=== PATIENT | female | born 1970 | race Caucasian/White ===

== ENCOUNTER 2018-05-17 10:05 | Emergency (ER) | payer BC, OTHER ==
[~2018-05-17] VITALS: Ht 165.1 cm; Wt 87.0 kg
[~2018-05-17 10:05] MED LIST: GLC/500 PO
[2018-05-17 10:07] VITALS: TEMP 36.5; Ht 165.1 cm; Wt 87.0 kg
[2018-05-17] MEDS ORDERED: ACET-1311 PO (10:15)
[2018-05-17] MEDS ORDERED: KETOROLAC TROMETHAMINE 60 MG/2 ML VIAL IM STA (11:01)
[2018-05-17] MEDS ORDERED: DIAZEPAM INJ 5 MG/ML 2 ML CARP IM STA (11:01)
[2018-05-17] MEDS ORDERED: MoRPHine SULFATE 10 MG/ML CARP/VIAL IM STA (11:01)
[2018-05-17] MEDS ORDERED: DIAZEPAM 5 MG/ML INJ 10ML VIAL ONE (11:08)
[2018-05-17] MEDS ORDERED: ONDANSETRON 4MG OD TAB PO ONE (11:15)
--- NOTE | 2018-05-17 12:54 | DIAGNOSTIC IMAGING REPORT ---
THORACIC SPINE 3 VIEWS HISTORY: LEFT MID BACK PAIN X ONE WEEK COMPARISON: None. FINDINGS: There is no fracture. No subluxation. Mild degenerative disc disease within the mid thoracic spine. Paraspinal soft tissues are unremarkable. IMPRESSION: No fracture or subluxation within the thoracic spine. Electronically signed by: Nick Prado M.D. 05/17/2018 12:52 PM Dictated Date/Time: 05/17/2018 12:51 PM
[2018-05-17] MEDS ORDERED: HYDR-5688 PO (13:10)
[2018-05-17] MEDS ORDERED: CYCL10TA6 PO (13:10)
--- NOTE | 2018-05-17 13:12 | EMERGENCY ROOM VISIT NOTE ---
ED Visit Note First contact with patient: 10:34 CHIEF COMPLAINT: Left mid back pain 1 week HISTORY OF PRESENT ILLNESS: Patient is a 47-year-old female who presents emergency department for evaluation of left mid back pain, near her left shoulder blade. Her symptoms number present for about a week after she did a fairly vigorous circuit workout at the gym. She relates that the following morning she woke up with a "knot" feeling in her left mid back. Her symptoms progressively worsened, prompting her to go to the chiropractor last Thursday. She states that he adjusted her neck and her shoulder, she did not get any significant relief. She describes a constant, aching pain between her left shoulder blade and spine. She has tried resting the area, [place] massage, Tylenol and Lorazepam, all without relief. She reports a constant pain. It is slightly worsened with movement and deep breathing. 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 She denies any cervical spine pain. No anterior chest pain or shortness of breath. She rates her pain a 9/10 presently. REVIEW OF SYSTEMS: Review of systems as per HPI. All other systems reviewed were negative. 10 systems reviewed. P ain, no chest pain, no head trauma. PMH: Electronic medical records are reviewed and summarized as above/below. See Problem List. SOCIAL HISTORY: Patient lives at home with family. Employed. Non-smoker.. PHYSICAL EXAM: Vital Signs: Reviewed Nurse's notes. MENTAL STATUS: Patient is an uncomfortable appearing 47-year-old female who is awake and alert and sitting upright on the edge of the gurney in moderate distress due to her mid back pain. HEART: Regular rate and rhythm. LUNGS: Clear to auscultation. SPINE: The patient does not have any tenderness to palpation over the cervical spinous processes. No cervical paraspinous muscle tenderness or spasm. She has full cervical spine range of motion, limited only by her mid back discomfort. There is no tenderness to palpation over the thoracic spinous processes. She has reproducible tenderness and focal spasm in the left mid thoracic region, between the thoracic spine and the scapula. NEUROLOGICAL: Alert, oriented, coherent. PERRL, moves all extremities well, sensation to touch intact over the upper extremities. Upper extremity DTRs are equal and symmetrical bilaterally. Strength to resisted shoulder flexion/ abduction, elbow flexion/extension, wrist flexion/extension, intrinsic hand strength, photo engraver strength, and thumb opposition is 5/5 bilaterally. EMERGENCY DEPARTMENT COURSE: The patient was treated with IM Toradol, Valium and morphine with oral Zofran. Thoracic spine x-rays were obtained, and negative for acute pathology. The patient has reproducible left paraspinous/ rhomboid spasm after exercising 1 week ago. I do not suspect acute cord compression, disc herniation, hematoma or epidural abscess. She is neurologically and neurovascularly intact in the upper extremities. She felt significantly improved with the IM medications in the emergency department. On reassessment she rated her pain a 5/10. She will be placed on a course of ibuprofen and Flexeril. She was given a small prescription for hydrocodone for pain. She was discharged home with a significant other driving. Medication reconciliation: I attest that I have personally reviewed the patient' s current medication list. Blood pressure screening : Patient was found to have normal blood pressure on screening and does not require follow-up. Patient was reviewed in the [facility] Prescription Drug Monitoring Program, and there were no red flags noted. THORACIC SPINE 3 VIEWS HISTORY: LEFT MID BACK PAIN X ONE WEEK COMPARISON: None. FINDINGS: There is no fracture. No subluxation. Mild degenerative disc disease within the mid thoracic spine. Paraspinal soft tissues are unremarkable. IMPRESSION: No fracture or subluxation within the thoracic spine. Problem List Medical Problems: (1) Calculus Of Kidney Status: Resolved (2) Low back pain with right-sided sciatica Status: Resolved Current/Historical Medications Scheduled Acetaminophen (Tylenol), 325 MG PO UD Scheduled PRN Cyclobenzaprine Hcl (Flexeril), 10 MG PO TID PRN for Muscle Spasms Hydrocodone/Acetaminophen 5MG/325MG ([place] 5MG/325MG), 1-2 TABLETS PO Q4 PRN for Pain Allergies Coded Allergies: Codeine (Verified Allergy, Unknown, RASH, 05/17/18) Diphenhydramine (Unverified Allergy, Unknown, rash, 05/17/18) Vital Signs Date Time Temp Pulse Resp B/P (MAP) Pulse Ox O2 Delivery O2 Flow Rate FiO2 05/17/18 13:31 59 17 113/76 99 05/17/18 11:46 74 106/70 98 Room Air 05/17/18 10:07 36.5 76 20 139/99 99 Room Air Medications Administered Medications (Trade) Dose Ordered Sig/Jim Route Start Time Stop Time Status Last Admin Dose Admin Ketorolac Tromethamine (Toradol Inj) 60 mg NOW STAT IM 05/17/18 11:01 05/17/18 11:03 DC 05/17/18 11:16 60 MG Morphine Sulfate (MoRPHine SULFATE INJ) 6 mg NOW STAT IM 05/17/18 11:01 05/17/18 11:03 DC 05/17/18 11:15 6 MG Ondansetron HCl (Zofran Odt) 4 mg ONE ONCE PO 05/17/18 11:15 05/17/18 11:16 DC 05/17/18 11:15 4 MG Diazepam (Valium Inj) 5 mg STK-MED ONCE .ROUTE 05/17/18 11:08 05/17/18 11:09 DC 05/17/18 11:16 5 MG Departure Information Impression Primary Impression: Thoracic back pain Prescriptions Hydrocodone/Acetaminophen 5MG/325MG (Helena 5MG/325MG) Tab 1-2 TABLETS PO Q4 Y for Pain, #20 TAB For Initial Treatment Prov: Hannah Farrell PA 05/17/18 Cyclobenzaprine Hcl (FLEXERIL) 10 Mg Tab 10 MG PO TID Y for Muscle Spasms, #30 TAB Prov: Hannah Farrell PA 05/17/18 Referrals Gerber Bush M.D. (PCP) Patient Instructions My [facility] Additional Instructions DO NOT drive, drink alcohol, operate machinery, or perform dangerous activities today. You were given medications in the ER that can affect your ability to safely function or operate a vehicle. Hydrocodone/Acetaminophen (Helena) 5/325 mg: Take 1-2 pills every four hours for breakthrough pain. Avoid alcohol, operating machinery or dangerous equipment, working on ladders or roofs, DRIVING, or situations where being under the influence may be dangerous. It is recommended to use an wujq-onm-btzbhuz stool softener such as Colace, 100mg twice daily while taking this medication to avoid constipation. Cyclobenzaprine (Flexeril) 10 mg: Take 1 pills 3 times daily as needed for muscle spasms.. Avoid alcohol, operating machinery or dangerous equipment, working on ladders or roofs, DRIVING, or situations where being under the influence may be dangerous. Ibuprofen(Motrin, Advil) may be used for fever or pain. Use 600mg every six hours as needed. Take with food. Avoid using more than 2400mg in a 24 hour period. Do not use 2400mg per day for more than three consecutive days without physician direction. Prolonged inappropriate use can lead to stomach upset or ulcers. This medication can be taken if you need to drive, work, or perform activities which may be dangerous when taking narcotic pain medication. (AND/OR) Acetaminophen(Tylenol) may be used for fever or pain. Use 1000mg every six hours as needed. Avoid using more than 3000mg in a 24 hour period. This medication can be taken if you need to drive, work, or perform activities which may be dangerous when taking narcotic pain medication. Rest and avoid heavy lifting until your symptoms resolve and then gradually return to full activity. A good rule of thumb is if it hurts your back to perform a certain activity, then it should be avoided until you are healthy again. A heating pad, warm compresses, or a hot shower may help with tight muscles and can be done several times a day as needed. Gentle massage/stretching exercises to help reduce spasm and pain. Continue current medications. Return to the ER immediately for any numbness, tingling, severe pain, loss of control of your bowels or bladder, inability to walk, or as needed. Follow up with your primary care physician within 3-5 days for a recheck of your current condition. Problem Qualifiers Primary Impression: Thoracic back pain Chronicity: acute Back pain laterality: left Qualified Codes: M54.6 - Pain in thoracic spine
[2018-05-17 13:31] VITALS: BP 113/76; PULSE 59; O2SAT 99
== END 2018-05-17 13:32 | disposition home or self-care (01) ==
LOC: C.EDB 10:06
DX: M54.6 Pain in thoracic spine (principal); Z88.5 Allergy status to narcotic agent

== ENCOUNTER 2023-11-25 07:37 | Inpatient (IN) ==
--- NOTE | 2023-11-19 14:38 | PAT Medication Instructions ---
Medication Instructions Date of Service November 19, 2023 Home Medications zolpidem 10 mg tablet (Ambien) 10 mg PO HS Take evening before surgery zolpidem 10 mg tablet (Ambien) 10 mg PO HS Other Notes NOTHING TO EAT OR DRINK AFTER MIDNIGHT. If you have any questions please call us at [phone] or [phone] or [phone] or [phone]
--- NOTE | 2023-11-23 14:02 | Anesthesiology Consultation ---
Date of Service November 23, 2023 Assessment & Plan (1) Encounter for pre-operative examination: Plan - h/o anesthesia reaction: significant bradycardia per pt during cystoscopy while , no available records; patient denies other cardiac history. - ER [facility] 11/18/23: "...abnormal vaginal bleeding. She has had her period since last week, but yesterday the bleeding got significantly worse...had an US done last week through [facility] and was told that she had a fibroid and would likely need a hysterectomy...bleeding has gotten significantly worse since the outpatient US. She is bleeding through multiple overnight pads - went through 5 pads in 3 hrs...studies revealed a normal hemoglobin and no thrombocytopenia. Coags were normal. TSH was normal. Serum hCG negative. Laboratory studies otherwise without significant abnormalities. I ordered a repeat pelvic ultrasound due to her significant change in bleeding, but the patient declined to have the pelvic ultrasound performed since she had a pelvic ultrasound done l ast week. I planned to do a pelvic exam to determine if there were any clots stuck in the cervical os causing the increased bleeding or other acute abnormalities on exam. However, the patient also declined the pelvic exam stating that she did not feel that she needed one. I offered to speak with the on-call SECURITY PROFESSIONAL for further recommendations of her bleeding since Dr. Olmstead was not bakery demonstrator. The patient stated that she would just call Dr. Olmstead's office in the morning for further outpatient treatment..." Chart Review Chart Review: Acceptable Risk for Surgery and Patient seen in Pre Admission Testing Teaching & Discussion Pre-Anesthesia Teaching/Discussion Notes: Instructed NPO after midnight before surgery, except medications with 15 cc of water. Medication instructions provided according to the PAT guidelines. History Surgery Operation Date: 11/25/23 09:10 Proposed Procedures p Total Abdominal Hysterectomy, Preserve the Ovaries - Bob Olmstead MD Height/Weight Height: 5 ft 4 in Weight: 78.2 kg Allergies Allergy/AdvReac Type Severity Reaction Status Date / Time tramadol Allergy Intermediate itching Verified 11/19/23 14:02 codeine Allergy Mild RASH Verified 11/19/23 14:02 diphenhydramine Allergy Mild rash Verified 11/19/23 14:02 ear drop Allergy Intermediate terrible Uncoded 11/19/23 14:02 rash ? of name/was a child Medications Home Medications Medication Instructions Recorded Confirmed Last Taken zolpidem 10 mg tablet (Ambien) 10 mg PO HS 11/19/23 11/19/23 Unknown Past Medical History Medical History (Updated 11/23/23 @ 14:24 by Valencia Marcos PA-C) GERD (gastroesophageal reflux disease) controlled, stable per pt History of anesthesia reaction significant bradycardia per pt during cystoscopy while , no available records; patient denies other cardiac history History of diabetes mellitus weight controlled per pt Kidney stone current>causing no problems Uterine bleeding Uterine fibroid Patient denies h/o stroke, seizures, heart attack, heart failure, HTN, blood clots/DVTs or blood transfusions. Exercise / Class Metabolic Activity III < 4 Walking/Shop/Light housework (denies chest discomfort or shortness of breath with usual activities) Past Family History Family History Other No family history of adverse response to anesthesia Past Surgical History Surgical History History of cystoscopy with stent for kidney stone Otto teeth removed Past Anesthesia History No Family Hx of Anesthesia Complications and Other (significant bradycardia per pt during cystoscopy while , no available records; patient denies other cardiac history) History of PONV No Hx of PONV and No Hx of Motion Sickness Social History Smoking Status: Former smoker Do You Dip or Chew Tobacco: No Smoking End Date: 17 years ago Hx Alcohol Use: Yes Alcohol type: hard liquor alcohol intake frequency: a few times a month Hx Substance Use: No substance use type: does not use Review of Systems Patient reports intermittent palpitations with stress related to uterine bleeding/soon hysterectomy. Denies chest pain, shortness of breath, dyspnea on exertion, snoring, witnessed apneas, fever, chills, cough, wheezing, dizziness, lightheadedness, or presyncope. Physical Exam Vital Signs Vitals BP 113/76 P 79 TEMP 98.7 SP02 97% on RA RESP 18 Physical Patient resting comfortably in chair in no acute distress, alert and oriented, responding appropriately throughout visit Full cervical extension range of motion without pain TMD 3.5 finger breadths Mallampati Score 2 Dentition: intact, denies chipped or loose teeth, caps/crowns, implants or bridges Lungs: normal respiratory effort. Good air movement, clear throughout to auscultation, no adventitious breath sounds Cardiac: regular rate and rhythm, no murmurs noted Carotid arteries: negative bruit bilat Lab Results Anesthesia Preop Results Results Anesthesia Widget: WBC 5.01 K/ul (4.8-10.8) 11/23/23 Hgb 12.5 g/dl (12.0-16.0) 11/23/23 Hct 36.8 % (37.0-47.0) L 11/23/23 Plt 410 K/uL (130-400) H 11/23/23 Na 139 mmol/L (136-145) 11/18/23 K 3.9 mmol/L (3.5-5.1) 11/18/23 Cl 108 mmol/L (98-107) H 11/18/23 CO2 25 mmol/L (21-32) 11/18/23 BUN 19 mg/dl (6-23) 11/18/23 Creat 1.12 mg/dl (0.6-1.2) 11/18/23 Glucose Level 104 mg/dl (70-99(Fasting)) H 11/18/23 PT 10.7 Seconds (9.0-12.0) 11/23/23 PTT 25 Seconds (21-31) 11/23/23 INR 1.0 (0.9-1.1) 11/23/23 TSH 1.665 uIu/ml (0.300-4.500) 11/18/23 HA1c 4.9 % (4.5-5.6) 11/23/23 Urine Test Negative (Negative) 11/23/23 Urine Color Pepin 11/18/23 Urine Appearance Clear (Clear) 11/18/23 Urine pH 5.5 (4.5-7.5) 11/18/23 Urine Specific [place] 1.009 (1.000-1.030) 11/18/23 Urine Protein 1+ (Negative) H 11/18/23 Urine Glucose (UA) Negative (Negative) 11/18/23 Urine Ketones Trace (Negative) H 11/18/23 Urine Blood 3+ (Negative) H 11/18/23 Urine Nitrite Negative (Negative) 11/18/23 Urine Bilirubin Negative (Negative) 11/18/23 Urine Urobilinogen Negative (Negative) 11/18/23 Urine Leukocyte Esterase Trace (Negative) H 11/18/23 Urine WBC (Auto) 1-5 /hpf (0-5) 11/18/23 Urine RBC (Auto) >30 /hpf (0-4) H 11/18/23 Urine Hyaline Casts (Auto) 1-5 /lpf (0-5) 11/18/23 Urine Epithelial Cells (Auto) 10-20 /lpf (0-5) H 11/18/23 Urine Bacteria (Auto) Negative (Negative) 11/18/23 Blood Type A Positive 11/23/23 Antibody Screen NEGATIVE 11/23/23 Testing Electrocardiogram Date: 11/18/23 NSR, rate 83 bpm Echocardiogram Date: 09/29/22 EF 55-60% No LV wall motion abnormalities Grade II diastolic dysfunction No significant valvular pathology
[2023-11-25] MEDS ORDERED: MIDAZOLAM HCL 1 MG/ML 2ML VIAL ONE (07:45)
[2023-11-25] MEDS ORDERED: DEXAMETHASONE SOD INJ 4 MG/ML VIAL ONE (07:45)
[2023-11-25] MEDS ORDERED: PROPOFOL IV EMULSION 10 MG/ML 20 ML VIAL IV ONE (07:45)
[2023-11-25] MEDS ORDERED: ONDANSETRON INJ 2 MG/ML 2 ML VIAL ONE (07:45)
[2023-11-25] MEDS ORDERED: LIDOCAINE 2% 2 ML VIAL/AMP(20MG/ML) INFIL ONE (07:45)
[2023-11-25] MEDS ORDERED: fentaNYL citrate PF 100 MCG/2 ML VIAL ONE (07:46)
[2023-11-25] MEDS ORDERED: ONDANSETRON INJ 2 MG/ML 2 ML VIAL IV PRN ×4 (08:24→15:41)
[2023-11-25] MEDS ORDERED: ePHEDrine sulfate 50 MG/ML AMP IV PRN ×3 (08:24→15:41)
[2023-11-25] MEDS ORDERED: ATROPINE SULFATE 0.1 MG/ML 10ML SYR IV PRN (08:24)
[2023-11-25] MEDS: LR 15ML/HR IV SCH (08:28)
[2023-11-25] MEDS ORDERED: MoRPHine SULFATE PF 1 MG/ML 10 ML AMP/VIAL ONE (08:50)
--- NOTE | 2023-11-25 08:58 | History & Physical Bridge Note ---
Date of Service November 25, 2023 History & Physical Bridge Note I have examined the patient, reviewed the History & Physical and in the interval since the performance of the History & Physical I have noted the following changes of clinical significance: no changes noted
[2023-11-25] MEDS: cefOXitin 2,000 MG in DEXTROSE 5 % MINI-B 50 ML IV SCH (09:25)
[2023-11-25] MEDS ORDERED: NALOXONE HCL 0.4 MG/1 ML VIAL/CARP IV PRN ×2 (09:37→15:41)
[2023-11-25] MEDS ORDERED: HYDROmorphone INJ 0.5 MG/0.5 ML SYR IV PRN ×2 (09:37→15:41)
[2023-11-25] MEDS ORDERED: NALBUPHINE HCL 5 MG in SYRINGE 0 ML IV PRN ×2 (09:37→15:41)
[2023-11-25] MEDS ORDERED: NALOXONE HCL 0.08 MG in SYRINGE 1.8 ML IV PRN ×2 (09:37→15:41)
[2023-11-25] MEDS ORDERED: LACTATED RINGER'S 500 ML IV PRN ×2 (09:37→15:41)
[2023-11-25] MEDS ORDERED: NALOXONE HCL 1 MG in SODIUM CHLORIDE 0.9% 1,000 ML IV PRN ×2 (09:37→15:41)
[2023-11-25] MEDS ORDERED: DC INTRASPINAL MORPHINE SCH ×2 (09:45→15:45)
[2023-11-25] MEDS ORDERED: NO NARCOTICS OR SEDATIVES SCH ×2 (09:45→15:45)
[2023-11-25] MEDS ORDERED: ROCURONIUM BROMIDE 10 MG/ML 5 ML VIAL IV ONE ×2 (09:58→10:09)
[2023-11-25] MEDS ORDERED: LARYING-O-JET KIT (LTA) ONE (09:58)
[2023-11-25] MEDS ORDERED: SUGAMMADEX SODIUM 200 MG/2 ML VIAL IV ONE (09:59)
[2023-11-25] MEDS ORDERED: PHENYLEPHRINE 100MCG/ML 10ML SYR IV ONE (10:00)
[2023-11-25] MEDS ORDERED: ePHEDrine sulfate 50 MG/5 ML SYR ONE (10:07)
[2023-11-25] MEDS ORDERED: GLYCOPYRROLATE 0.2 MG/ML VIAL ONE (10:07)
[2023-11-25] MEDS: fentaNYL citrate PF 100 MCG/2 ML VIAL IV PRN (12:11)
[2023-11-25] MEDS ORDERED: MEPERIDINE HCL 50 MG/ML CARP IV PRN (12:37)
[2023-11-25] MEDS ORDERED: SENNA 8.6 MG TAB PO PRN (12:37)
[2023-11-25] MEDS ORDERED: MAGNESIUM HYDROXIDE SUSP 30 ML UDC PO PRN (12:37)
[2023-11-25] MEDS ORDERED: bisacodyL 10 MG SUPP PR PRN (12:37)
[2023-11-25] MEDS ORDERED: KETOROLAC 30 MG/ML VIAL IV PRN (12:37)
[2023-11-25] MEDS ORDERED: PROMETHAZINE HCL 25 MG in SODIUM CHLORIDE 0.9% 50 ML IV PRN (12:37)
[2023-11-25 12:40] LABS: Basophils # (auto) 0.06 K/uL (0.00-0.20); Basophils % (auto) 0.5 %; Eosinophils # (auto) 0.01 K/uL (0.00-0.50); Eosinophils % (auto) 0.1 %; Hematocrit (blood only) 34.7 % (37.0-47.0); Hemoglobin 11.7 g/dl (12.0-16.0); Immature Granulocytes # (auto) 0.05 K/uL (0.01-0.20); Immature Granulocytes % (auto) 0.5 %; Lymphocytes # (auto) 1.15 K/uL (1.20-3.40); Lymphocytes % (auto) 10.5 %; Mean Corpuscular Hemoglobin 30.6 pg (25.0-34.0); Mean Corpuscular Hgb Conc 33.7 g/dL (32.0-36.0); Mean Corpuscular Volume 90.8 fL (80.0-100.0); Monocytes # (auto) 0.22 K/uL (0.11-0.59); Neutrophils # (auto) 9.46 K/uL (1.40-6.50); Neutrophils % (auto) 86.4 %; Platelet Count 357 K/uL (130-400); RDW Coefficient of Variation 12.9 % (11.5-14.5); RDW Standard Deviation 41.8 fL (36.4-46.3); Red Blood Count 3.82 M/uL (4.20-5.40); White Blood Count 10.95 K/ul (4.8-10.8)
[2023-11-25] MEDS: HYDROmorphone INJ 1 MG/ML SYRINGE ONE (12:42)
[2023-11-25] MEDS: HYDROmorphone INJ 0.5 MG/0.5 ML SYR IV STA (12:47)
[2023-11-25 12:58] LABS: BUN Creatinine Ratio 17.6 (10-20); Calcium 8.2 mg/dl (8.6-10.3); Est GFR (African American) 84.7 ml/min; Est GFR (Non-African American) 73.1 ml/min
[2023-11-25 13:07] LABS: INR 1.1 (0.9-1.1); Partial Thromboplastin Ratio 0.8; Partial Thromboplastin Time 23 Seconds (21-31); Prothrombin Time 11.8 Seconds (9.0-12.0)
--- NOTE | 2023-11-25 13:50 | Anesthesiology Progress Note ---
Date of Service November 25, 2023 Anesthesia Post Procedure Vital Signs Vital Signs: Temp Pulse Pulse Resp BP Pulse Ox O2 Del Method 11/25/23 13:30 66 12 115/70 92 Room Air 11/25/23 13:15 98.8 F 74 18 122/69 96 Room Air 11/25/23 13:05 70 16 130/81 96 Room Air 11/25/23 12:55 64 22 110/76 95 Room Air 11/25/23 12:45 71 15 127/70 95 Room Air 11/25/23 12:35 66 22 131/75 99 Oxymask 11/25/23 12:25 70 12 122/62 100 Oxymask 11/25/23 12:15 61 12 119/78 99 Oxymask 11/25/23 12:07 98.2 F 63 17 123/73 97 Oxymask 11/25/23 08:14 98.4 F 79 18 128/86 95 Room Air O2 Flow Rate 11/25/23 13:30 11/25/23 13:15 11/25/23 13:05 11/25/23 12:55 11/25/23 12:45 11/25/23 12:35 2 11/25/23 12:25 2 11/25/23 12:15 4 11/25/23 12:07 6 11/25/23 08:14 Pain Intensity Lower Abdomen: Pain Intensity: 4 Transfer of Care Handoff Completed per policy Notes Mental Status: alert / awake / arousable and participated in evaluation Patient Amnestic to Procedure: Yes Nausea / Vomiting: adequately controlled Pain: adequately controlled Airway Patency, RR, SpO2: stable & adequate BP & HR: stable & adequate Hydration State: stable & adequate Anesthetic Complications: no major complications apparent and Pt Satisfied with anesthetic care
--- NOTE | 2023-11-25 15:06 | Operative Report ---
Post Operative Report Pre & Post Diagnosis Operation Date: 11/25/23 09:10 Pre-Op Diagnosis: 1. Uterine fibroid 2. History of heavy vaginal bleeding 3. Submucous uterine fibroid Post-Op Diagnosis: 1. Uterine fibroid 2. History of heavy vaginal bleeding 3. Submucous uterine fibroid I identified the patient and participated in the time-out.: Yes Procedure Operation Date: 11/25/23 09:10 Actual Procedures p Total Abdominal Hysterectomy with Preservation of the Ovaries(Not Applicable) - Bob Olmstead MD Surgeon Bob Olmstead MD Lead Slot Technician OR tech dental ceramist assistant Estimated Blood Loss 100 Findings Consistent with Post-Op Diagnosis Normal tubes and ovaries . Large retroverted fibroid uterus. Specimens Uterus and cervix. Drains [place] drain in the vaginal cuff with a safety pin. Anesthesia Type General Complications None. Indications Heavy vaginal bleeding with clotting. Present for over 1 year. Description of Procedure Patient was brought to the OR table correctly identified by armband and conversation. Vaginal prep with Betadine was performed. A Cristian catheter was inserted aseptically into the bladder. Compression stockings were applied. Lower abdomen was painted with an alcohol-based sterilizing solution. Abdomen was draped in usual sterile fashion. Pfannenstiel incision was made and carried down to the anterior fascia by sharp dissection. Hemostasis was secured by electrocauterization. Fascia was dissected off the recti muscles by blunt and sharp dissection. Recti muscles were in the midline. Peritoneum was raised and carefully entered. An O'Dhaval retractor was used to retract the incision and provide adequate exposure of the pelvic cavity. 4 laparotomy packs were used to pack off the bowel. What was visualized at this time were normal tubes and ovaries. A large retroverted fibroid uterus. With a 5 cm fibroid located on the right fundal area. Each round ligament was clamped. Then suture-ligated with a transfixion suture of chromic catgut. And then cut. The vesicouterine fold was incised and then bluntly advanced out of the operative field. The ovarian ligament and tube was then isolated on each side of the uterus. This was done by punching through the posterior broad ligament. And clamping proximally and distally. The attachment was then cut and the distal portion was then doubly ligated with a transfixion suture of chromic catgut intact. Uterine vessels were skeletonized. Doubly clamped with a curved Princess clamp. Cut with a knife. And then doubly ligated with a Chromic Gut suture. The bladder was advanced out of the operative field. The cervix was dissected by clamping close to the cervix and sliding off with a curved Princess clamp. Cutting with a stump. And then ligating with a Chromic Gut suture. This was done when 2 steps because of the length of the cardinal ligaments. The uteros acral ligaments on each side were separately clamped. Cut and then ligated with a transfixion suture of chromic catgut. The cervix was then shelled out with electrocautery. The vaginal cuff was entered posterior. And carried around the cervix thus excising the surgical specimen consisting of cervix uterus and fibroid. The angles of the vaginal cuff were ligated to the stumps of the cardinal ligaments on either side. The vaginal cuff was closed on each angle with a [id number] suture of chromic catgut. Middle of the cuff was initially left open. The uterosacral ligaments were approximated with a sewzvg-[id number] suture of Vicryl which was tied inside the vaginal cuff. The open portion of the vaginal cuff was whipstitched with chromic gut suture. A [place] drain with a safety pin was placed into the vagina. The other end was placed into the cul-de-sac. The round ligaments were brought down and tied to the stumps of the cardinal ligaments on either side. The peritoneum was then approximated front to back covering up the stumps on each side. The 2 sutures were then tied to each other. The pelvis was cleansed of all blood clots and debris the pelvis was washed with normal saline there was no bleeding. Packs were removed. The retractor was removed. A careful anatomical approximation of the anterior abdominal wall was performed. The peritoneum was closed with a continuous interlocking suture of chromic catgut. Recti muscles were approximated with interrupted [id number] suture of chromic catgut. Fascia was closed with continuous interlocking suture of Vicryl on each side tied in the midline subcu was approximated with a running plain and the skin edges were approximated with staple clips. Patient tolerated procedure well left the OR in good condition. I attest to the content of the Intraoperative Record and any orders documented therein. Any exceptions are noted below.
[2023-11-25] MEDS: D5W AND LACTATED RINGERS 1,000 ML IV SCH (15:21)
[2023-11-25] MEDS ORDERED: MoRPHine SULFATE 2 MG/ML CARP IV PRN (15:41)
[2023-11-25] MEDS ORDERED: PROMETHAZINE HCL 6.25 MG in SODIUM CHLORIDE 0.9% 50 ML IV PRN (15:41)
[2023-11-25] MEDS ORDERED: diphenhydrAMINE 50 MG/ML VIAL IV PRN (15:41)
[2023-11-25] MEDS ORDERED: MEPERIDINE HCL 25 MG/ML CARP/VIAL IV PRN (15:41)
[2023-11-25] MEDS: KETOROLAC 30 MG/ML VIAL IV PRN (16:11)
[2023-11-25] MEDS: ZOLPIDEM TARTRATE 5 MG TAB PO SCH (22:34)
[2023-11-26 06:49] LABS: Basophils # (auto) 0.02 K/uL (0.00-0.20); Basophils % (auto) 0.2 %; Eosinophils # (auto) 0.01 K/uL (0.00-0.50); Eosinophils % (auto) 0.1 %; Hemoglobin 10.8 g/dl (12.0-16.0); Immature Granulocytes # (auto) 0.03 K/uL (0.01-0.20); Immature Granulocytes % (auto) 0.4 %; Lymphocytes # (auto) 1.51 K/uL (1.20-3.40); Lymphocytes % (auto) 18.5 %; Mean Corpuscular Hemoglobin 31.5 pg (25.0-34.0); Mean Corpuscular Hgb Conc 34.8 g/dL (32.0-36.0); Mean Corpuscular Volume 90.4 fL (80.0-100.0); Mean Platelet Volume 9.2 fL (9.4-12.4); Monocytes # (auto) 0.61 K/uL (0.11-0.59); Monocytes % (auto) 7.5 %; Neutrophils # (auto) 5.97 K/uL (1.40-6.50); Neutrophils % (auto) 73.3 %; Platelet Count 342 K/uL (130-400); RDW Coefficient of Variation 13.1 % (11.5-14.5); RDW Standard Deviation 42.5 fL (36.4-46.3); Red Blood Count 3.43 M/uL (4.20-5.40); White Blood Count 8.15 K/ul (4.8-10.8)
--- NOTE | 2023-11-26 08:57 | Obstetrical Progress Note ---
Date of Service November 26, 2023 Assessment & Plan Admission and Anticipated Discharge Date Admission Date: November 25, 2023 Subjective abdomen soft and non tender bowel sounds present bandage removed incision is clean and dry no calf tenderness vaginal bleeding scant hgb 10.8 Results & Data Vital Signs (Past 12 Hours) Vital Signs Temp Pulse Pulse Resp BP Pulse Ox O2 Del Method 11/26/23 08:00 16 98 11/26/23 08:00 Room Air 11/26/23 07:20 36.9 C 73 18 110/63 98 Room Air 11/26/23 06:20 16 95 11/26/23 05:50 18 96 11/26/23 04:43 18 96 11/26/23 03:46 16 98 11/26/23 03:46 36.7 C 85 16 104/60 98 Room Air 11/26/23 02:50 16 96 11/26/23 01:37 16 96 11/26/23 00:46 16 96 11/25/23 23:55 16 95 11/25/23 22:36 16 97 11/25/23 22:36 36.5 C 65 16 110/61 97 Room Air 11/25/23 21:15 18 97 11/25/23 21:15 18 97
[2023-11-26] MEDS: SIMETHICONE 80 MG CHEW PO PRN (11:27)
[2023-11-26] MEDS: oxyCODONE/ACETAMINOPHEN 5mg/325mg TAB PO PRN (13:07)
[2023-11-26] MEDS: HYDROmorphone INJ 0.5 MG/0.5 ML SYR IV STA (19:19)
[2023-11-26] MEDS: SODIUM CHLORIDE 0.9% 1,000 ML IV SCH ×2 (19:20→19:25)
[2023-11-26] MEDS: MoRPHine SULFATE PF 1 MG/ML 10 ML AMP/VIAL INT SPINAL ONE (19:24)
[2023-11-26] MEDS: IBUPROFEN 600 MG TAB PO PRN (19:33)
[2023-11-27 06:41] LABS: Basophils # (auto) 0.04 K/uL (0.00-0.20); Basophils % (auto) 0.6 %; Eosinophils % (auto) 1.5 %; Hematocrit (blood only) 33.4 % (37.0-47.0); Hemoglobin 11.3 g/dl (12.0-16.0); Immature Granulocytes # (auto) 0.02 K/uL (0.01-0.20); Immature Granulocytes % (auto) 0.3 %; Lymphocytes # (auto) 1.95 K/uL (1.20-3.40); Lymphocytes % (auto) 28.8 %; Mean Corpuscular Hemoglobin 30.9 pg (25.0-34.0); Mean Corpuscular Hgb Conc 33.8 g/dL (32.0-36.0); Mean Corpuscular Volume 91.3 fL (80.0-100.0); Mean Platelet Volume 9.1 fL (9.4-12.4); Monocytes % (auto) 7.4 %; Neutrophils # (auto) 4.16 K/uL (1.40-6.50); Neutrophils % (auto) 61.4 %; Platelet Count 360 K/uL (130-400); RDW Coefficient of Variation 13.2 % (11.5-14.5); RDW Standard Deviation 43.8 fL (36.4-46.3); Red Blood Count 3.66 M/uL (4.20-5.40); White Blood Count 6.77 K/ul (4.8-10.8)
--- NOTE | 2023-11-27 08:37 | Obstetrical Progress Note ---
Date of Service November 27, 2023 Assessment & Plan Admission and Anticipated Discharge Date Admission Date: November 26, 2023 Subjective abdomen soft and non tender incision is clean and dry passing gas no calf tenderness ambulating well lai drain removed from the vagina vaginal bleeding scant hgb 11.3 Results & Data Vital Signs (Past 12 Hours) Vital Signs Temp Pulse Resp BP Pulse Ox O2 Del Method 11/26/23 22:54 36.9 C 81 16 134/80 98 Room Air
--- NOTE | 2023-11-27 08:55 | Discharge Summary ---
Date of Service November 27, 2023 Admission HPI Per Admitting Provider Patient is a 53-year-old 5 para 3 with 2 spontaneous miscarriages. She had a Mirena IUD placed approximately 7 to 8 years ago to control heavy bleeding. The IUD worked up until about 1-1/2 years ago. She began to experience episodes of heavy vaginal bleeding with clotting. Soaking through a pad and under an hour. Some of the periods were messenger office than others. I saw the patient in my office on November 03, 2023. At that time I removed removed the Mirena IUD. Pelvic exam at this visit revealed a 15-week gestational size uterus. Retroverted and filling the pelvis. Transvaginal ultrasound on 2023 revealed the uterine size of 9.5 x 8.0 x 7.4 cm. It showed a large myoma which measured 5.4 cm x 4.5 cm x 4.7 cm. This myoma had a large submucous component. Due to the fibroids were unable to measure the endometrial stripe. Patient is presently being scheduled for total abdominal hysterectomy with preservation's of both ovaries. Admission Exam (Per Admitting) Constitutional abdomen soft and non tender incision is clean and dry passing gas no calf tenderness ambulating well lai drain removed from the vagina vaginal bleeding scant hgb 11.3 Discharge Data Procedures Performed Operation Date: 11/25/23 09:10 Actual Procedures p Total Abdominal Hysterectomy with Preservation of the Ovaries(Not Applicable) - Bob Olmstead MD Hospital Course (1) S/P total abdominal hysterectomy: Plan Patient was admitted for symptoms of heavy bleeding due to symptomatic fibroid uterus. Conservative measures had been taken to control the bleeding with the Mirena IUD. These measures failed. At the time of admission she was bleeding every 2 weeks heavy at times passing large clots. Her admission hemoglobin was 11.3. She was taken to the OR where she underwent total abdominal hysterectomy with preservation of both ovaries. A Lai drain was placed into the vaginal cuff at the time of surgery. Postoperatively she did well. She remained afebrile. Her bowel sounds returned within 24 hours. At the time of discharge she was ambulating well eating well. Lai drain was removed from the vaginal cuff. And her last hemoglobin was 11.3. She was given instructions to return to the office in 1 week for removal of julio c. And to call the office if she had a temperature over 100 or any heavy bleeding.
== END 2023-11-27 11:30 | disposition home or self-care (01) | DRG 743 ==
LOC: ASU 07:37 → 4E1 07:37